=== PATIENT | female | born 1995 | race African-American/Black ===

== ENCOUNTER 2019-10-27 02:03 | Emergency (ER) | payer MEDICAID, OTHER ==
[~2019-10-27] VITALS: Ht 149.9 cm; Wt 73.0 kg
[2019-10-27] MEDS ORDERED: TRAMADOL 50MG TABLET PO ONE (06:15)
[2019-10-27 08:09] VITALS: BP 124/68
== END 2019-10-27 08:14 | disposition home or self-care (01) ==
LOC: ER 02:03
DX: S13.4XXA Sprain of ligaments of cervical spine, initial encounter (principal); S16.1XXA Strain of muscle, fascia and tendon at neck level, initial encounter; S00.83XA Contusion of other part of head, initial encounter; S29.9XXA Unspecified injury of thorax, initial encounter; F12.10 Cannabis abuse, uncomplicated; V49.88XA Car occupant (driver) (passenger) injured in other specified transport accidents, initial encounter; Y93.89 Activity, other specified; Y92.89 Other specified places as the place of occurrence of the external cause; Y99.8 Other external cause status
CPT/HCPCS: 70486; 71045; 81025; 99284

== ENCOUNTER 2020-12-01 17:49 | Emergency (ER) | payer MEDICAID, OTHER ==
[~2020-12-01] VITALS: Ht 149.9 cm; Wt 81.7 kg
[2020-12-01 17:53] VITALS: BP 136/89
[2020-12-01] MEDS ORDERED: AZITHROMYCIN 500 MG TABLET PO ONE (19:00)
[2020-12-01] MEDS ORDERED: CEFTRIAXONE SODIUM 250 MG/VIAL IM ONE (19:00)
[2020-12-01 19:06] LABS: CLARITY URINE CLOUDY (CLEAR); COLOR URINE YELLOW (YELLOW); KETONES URINE NEGATIVE (NEGATIVE); LEUKOCYTE ESTERASE URINE TRACE (NEGATIVE); NITRITE URINE NEGATIVE (NEGATIVE); OCCULT BLOOD URINE NEGATIVE (NEGATIVE); PROTEIN URINE NEGATIVE (NEGATIVE); SPECIFIC GRAVITY URINE 1.022 (1.005-1.030); UROBILINOGEN URINE 0.2 E.U./dL (0.2-1.0)
[2020-12-01] MEDS ORDERED: CEFTRIAXONE SODIUM 500 MG/VIAL IM NR (19:15)
[2020-12-05 16:39] LABS: NEISSERIA GONORRHOEAE NAA Positive (Negative)
== END 2020-12-01 20:59 | disposition home or self-care (01) ==
LOC: ER 17:49
DX: N76.0 Acute vaginitis (principal); F12.10 Cannabis abuse, uncomplicated; B96.89 Other specified bacterial agents as the cause of diseases classified elsewhere; Z11.3 Encounter for screening for infections with a predominantly sexual mode of transmission
CPT/HCPCS: 81003; 81025; 87210; 87491; 87591; 96372; 99284; J0696; Z7610; 99283

== ENCOUNTER 2021-02-15 18:26 | Emergency (ER) | payer MEDICAID, OTHER ==
[~2021-02-15] VITALS: Ht 149.9 cm; Wt 81.0 kg
[2021-02-15 19:03] VITALS: BP 142/83
[2021-02-15 20:25] LABS: CLARITY URINE CLOUDY (CLEAR); COLOR URINE YELLOW (YELLOW); KETONES URINE NEGATIVE (NEGATIVE); LEUKOCYTE ESTERASE URINE 2+ (NEGATIVE); NITRITE URINE NEGATIVE (NEGATIVE); OCCULT BLOOD URINE 2+ (NEGATIVE); PH URINE 6.5 (4.5-8.0); PROTEIN URINE TRACE (NEGATIVE); SPECIFIC GRAVITY URINE 1.014 (1.005-1.030); UROBILINOGEN URINE 0.2 E.U./dL (0.2-1.0)
[2021-02-15] MEDS ORDERED: NITR100C MT (20:43)
== END 2021-02-15 21:39 | disposition home or self-care (01) ==
LOC: ER 18:26
DX: N30.90 Cystitis, unspecified without hematuria (principal)
CPT/HCPCS: 81003; 81025; 87077; 87186; 99283

== ENCOUNTER 2022-02-13 01:43 | Emergency (ER) | payer SELFPAY ==
[~2022-02-13] VITALS: Ht 149.9 cm; Wt 78.0 kg
[~2022-02-13 01:43] MED LIST: NITR100C MT
[2022-02-13 02:59] LABS: CLARITY URINE CLEAR (CLEAR); COLOR URINE YELLOW (YELLOW); KETONES URINE NEGATIVE (NEGATIVE); LEUKOCYTE ESTERASE URINE 2+ (NEGATIVE); NITRITE URINE NEGATIVE (NEGATIVE); OCCULT BLOOD URINE NEGATIVE (NEGATIVE); PH URINE 7.5 (4.5-8.0); PROTEIN URINE NEGATIVE (NEGATIVE); SPECIFIC GRAVITY URINE 1.021 (1.005-1.030)
[2022-02-13 04:00] VITALS: BP 129/74
[2022-02-13] MEDS ORDERED: METR70GE17 VG (05:12)
[2022-02-13] MEDS ORDERED: SULF1TAB48 PO (05:12)
[2022-02-13] MEDS ORDERED: FLUC150T5 PO (05:12)
[2022-02-15 08:07] LABS: NEISSERIA GONORRHOEAE NAA Negative (Negative)
== END 2022-02-13 05:30 | disposition home or self-care (01) ==
LOC: ER 01:43
DX: N76.0 Acute vaginitis (principal); N39.0 Urinary tract infection, site not specified; F12.10 Cannabis abuse, uncomplicated
CPT/HCPCS: 81003; 81025; 87210; 87491; 87591; 99283